=== PATIENT | female | born 1955 | race Caucasian/White ===

== ENCOUNTER 2024-03-11 18:07 | Emergency (ER) | payer OTHER, SELFPAY ==
[2024-03-11 18:19] VITALS: BP 157/87
[2024-03-11 19:29] VITALS: BP 146/79
[2024-03-11 19:43] LABS: % Basophils 0.6 % (0-2); % Eosinophils 2.2 % (0-6); % Immature Granulocytes 0.4 % (0-0.5); % Lymphocytes 26.9 % (20.5-51.1); % Monocytes 7.6 % (1.7-9.3); % Neutrophils 62.3 % (42.2-75.2); Absolute Eosinophils 0.2 10^3/uL (0-0.7); Absolute Lymphocytes 1.8 10^3/uL (1.2-3.4); Absolute Monocytes 0.5 10^3/uL (0.1-0.6); Absolute Neutrophils 4.2 10^3/uL (1.4-6.5); Hematocrit 35.7 % (37.0-47.0); Hemoglobin 12.3 g/dL (12.0-16.0); Mean Corp Hgb Conc. 34.5 g/dL (33.0-37.0); Mean Corpuscular Hgb 26.2 pg (27.0-31.0); Mean Corpuscular Volume 76.1 fL (81.0-99.0); Mean Platelet Volume 10.9 fL (7.4-10.4); Nucleated Red Blood Cells % 0 %; Platelet Count 227 10^3/uL (130-400); Red Blood Cell Count 4.69 10^6/uL (4.20-5.40); Red Cell Dist. Width 13.5 % (11.5-14.5); White Blood Cell Count 6.7 10^3/uL (4.8-10.8)
[2024-03-11 20:00] VITALS: BP 143/81
--- NOTE | 2024-03-11 20:32 | ED.GENMED ---
History of Present Illness
General
Chief Complaint: Heart Rate Problem
Source: patient and spouse
Exam Limitations: none
Time Seen by Provider: 03/11/24 19:47
History of Present Illness
History of Present Illness:
This is a 68 year old female that comes in with c/o chest pain. States that she has a heaviness in the left chest and then causes her to cough. states that this started on the in the morning that she was awakened with pain. States that
her heart rate is irregular when this happens. States that this happened on Thursday but it went away. Then again the next day and has been going on for the past 5 days. States tht she gets this 5-6 times daily. Denies any pain at this time.
States that she does have a headache. Denies any fever, chills, SOB, abd pain, nausea, vomiting, diarrhea, dizziness, urinary burning.
Past History
Past History
ED Past Medical History: HTN, Hypercholesterolemia, Hypothyroidism and Other (Gastritis)
ED Past Surgical History: None
Social History
Tobacco: Non-smoker
Alcohol: None
Personal:
Living: with family
Employment: Not employed
Family History
Family History: Other (Noncontributory)
Review of Systems
Review of Systems
All Other Systems: ROS reviewed and negative except as documented in HPI and ROS
Constitutional: Reports no symptoms; Denies fever or chills
EENT: Reports no symptoms
Respiratory: Reports cough (with the irregular heart beat); Denies trouble breathing
Cardiac: Reports chest pain
ABD/GI: Reports no symptoms; Denies abdominal pain, nausea, vomiting or diarrhea
: Reports no symptoms; Denies dysuria, frequency or urgency
Musculoskeletal: Reports no symptoms
Skin: Reports no symptoms
Neurological: Reports headache; Denies dizzy
Psychiatric: Reports no symptoms
Phy Exam
General Physical Exam
General Presentation: no apparent distress
General age: appears stated age
General Skin: warm and dry
General Habitus: normal
General Mental: alert
General Hydration: dry mucous membranes
ENT Exam
ENT Exam: TM's normal, pharynx normal and neck supple
Eye Exam
Eye Exam: EOMI
Cardiovascular Exam
Cardiovascular Exam: regular rate/rhythm, no edema, no murmur and normal peripheral pulses
Pulmonary Exam
Pulmonary Exam: lungs clear, no respiratory distress, no rales, chest non tender, no crackles, no rhonchi, no wheezing and no cough
Gastrointestinal Exam
Gastrointestinal Exam: normal bowel sounds, non tender, soft, no organomegaly, no pulsatile mass and non distended
Musculoskeletal Exam
Musculoskeletal Exam: full ROM and no edema
Skin Exam
Skin Exam: normal color, warm/dry, no rash and no petechia
Psychiatric Exam
Psychiatric Exam: normal mood/affect
Course
Orders/Labs/Results
Orders:
Orders
03/11/24 18:21
ECG [Electrocardiogram (*1)] Urgent
Reason for Study: Chest Pain
EKG- Treatment ONCE
03/11/24 19:32
Cardiac Monitoring- Treatment ONCE
IV Insert/Care/Rem.- Treatment PRN
CR Chest - 2 Views Urgent
Comment:
Reason For Exam: respiratory distress
O2 Therapy [RESP] Urgent
Titrate/Wean O2 to maintain O2 sat greater than (%): 93
Special Instructions: TO MAINTAIN CONTINUOUS O2 SATS >/= 93%
Pulse Ox/cont/shift [RESP] Urgent
Quantity: 1
Special Instructions: continuous pulse ox
03/11/24 19:34
Complete Blood Count/With Diff Urgent
03/11/24 20:32
0.9% Sodium Chloride 1000 ml [Nss] 1,000 ml IV BOLUS
03/11/24 20:37
Add On- LAB Urgent
Tests Added?: TSH with free T4
03/11/24 20:40
Comprehensive Metabolic Panel Urgent
D-Dimer Urgent
NT-proBNP Urgent
TSH Reflex To Free T4 Urgent
Comment: ADD ON
Troponin I Urgent
03/11/24 21:50
EKG- Treatment ONCE
03/11/24 22:23
Troponin I Urgent
03/11/24 23:40
Electrocardiogram (*1) Urgent
Reason for Study: Chest Pain
Other Reason for Exam: Repeat with troponin
Abnormal Lab Results
03/11/24 03/11/24
19:34 20:40
Hct 35.7 L %
(37.0-47.0)
MCV 76.1 L fL
(81.0-99.0)
MCH 26.2 L pg
(27.0-31.0)
MPV 10.9 H fL
(7.4-10.4)
BUN 24 H mg/dl
(7-17)
03/11/24 19:34
03/11/24 20:40
Anemia, Dehydration. D-dimer 0.28, Troponin <0.012, Pro-BNP <20.0, TSH 0.97
Second Troponin <0.012
Vital Signs
Initial and Last Documented VS:
Initial Vital Signs
Temp Pulse Resp BP Pulse Ox
98.6 F 73 20 157/87 98
03/11/24 18:19 03/11/24 18:19 03/11/24 18:19 03/11/24 18:19 03/11/24 18:19
Last Documented Vital Signs
Temp Pulse Resp BP Pulse Ox
98.6 F 73 20 157/87 98
03/11/24 18:19 03/11/24 18:19 03/11/24 18:19 03/11/24 18:19 03/11/24 18:19
MDM/Problems Addressed
Differential Diagnosis Includes:
Irregular heart rhythm, Coronary syndrome
MDM/Problems Addressed:
This is a 68 year old female that comes in with c/o chest pain that comes and goes. States that her heart rate is irregular when this happens and she has to cough.
Will check labs, chest x-ray, and give IV fluids
repeat ECG+ Rate 57m Sinus [place]. Normal axis. Normal QRS, negative for ischemia. Low voltage.
Back into see patient. Explained to patient and . Patient has not had any irregular heart rate here. The fact that when she gets her chest pain her heart is irregular is concerned. Will place patient on the Cardiology hot line for further
evaluation as they may have patient wear a Holter monitor and further testing. Patient to return with increased chest pain or any other concerns.
Chronic conditions affecting care:
NA
Acute Exacerbation and/or Progression of Chronic Illness:
NA
*Radiology
Radiology exam reviewed: radiology read reviewed (Chest-No acute cardiopulmonary process)
*Pulse Oximetry
Patient hypoxic: no
*EKG
Interpreted by ED Provider?: Yes
Heart Rate: 80
Rate: normal
Rhythm: sinus
[place]: normal axis
Interval: normal interval
QRS Pattern: normal QRS
Ischemia: no ischemia
*Preparation Supervisor [place] Interpretation
Rate: normal
Heart Rate: 61
Rhythm: sinus
*Critical Care Note
Total Time (30-74mins, 75-104mins- exclusive of procedures): Not Applicable
ED Attending Note
-
Portions of this chart may have been created with voice recognition software.� Occasional wrong word or��sound alike� substitutions may have occurred due to the inherent limitations of voice recognition software.
Discharge Plan
Departure
Patient Disposition: Home (Routine Discharge)
Date of Disposition: 03/11/24
Time of Disposition: 23:17
Patient with high blood pressure during this ER visit?: Yes
Condition: Good
Covid-19: Not Applicable
Discharge Problem:
Chest pain
Instructions: Chest Pain CBC Follow Up, BLOOD PRESSURE
Prescriptions:
No Action
Levothyroxine
125 mcg PO DAILY
cyanocobalamin (vitamin B-12) 1,000 MCG tablet
1,000 mcg PO DAILY
lisinopril 5 MG tablet
5 mg PO DAILY
ibuprofen 600 MG tablet
600 mg PO Q8H PRN (Reason: pain)
cholecalciferol (vitamin D3) [Vitamin D3] 25 MCG capsule
1,000 unit PO DAILY
rosuvastatin 5 MG tablet
5 mg PO HS
naproxen 500 mg tablet,delayed release (DR/EC)
500 mg PO BID Qty: 20 0RF
Rx Instructions:
Please take with food
Referrals:
NONE,* [Family Provider] -
Activity Restrictions/Additional Instructions:
As discussed, your blood work shows dehydration. Please increase your water intake to 8-8oz glasses daily. Your Chest x-ray is normal. Your Thyroid function is in a normal range but on the low side. Please follow up with your [employer] Faculty Member. You
have been place on the Cardiology hot line. This means that the Care Clinician office will call you the next business day for further evaluation. IF YOU HAVE INCREASED OR CHANGING CHEST PAIN, IRREGULAR HEART RATE OR YOU HAVE ANY OTHER CONCERNS PLEASE
RETURN TO THE EMERGENCY ROOM.
Interventions
Interventions:
*Risk Screen - Suicide Last Done: 03/11/24 18:19
*General Assessment Last Done: 03/11/24 18:19
*Neglect/Abuse Screening Last Done: 03/11/24 18:19
Discharge Date and Time
Print Language: BULGARIAN
[2024-03-11 21:00] VITALS: BP 128/76; BMI 26.3
[2024-03-11 21:02] LABS: D-Dimer 0.28 ug/mlFEU (0.00-0.50)
[2024-03-11 21:03] LABS: Alkaline Phosphatase 73 U/L (38-126); Blood Urea Nitrogen 24 mg/dl (7-17); Calcium 9.2 mg/dl (8.4-10.2); Carbon Dioxide 27 mmol/L (22-30); Chloride 101 mmol/L (98-107); Glucose 96 mg/dl (70-99); Potassium 3.6 mmol/L (3.5-5.1); Sodium 136 mmol/L (135-145); Total Protein 7.2 g/dl (6.3-8.2); eGFR > 60.00
[2024-03-11 21:04] LABS: ALT (SGPT) 22 U/L (0-35); AST (SGOT) 28 U/L (14-36); Albumin 4.2 g/dl (3.5-5.0); Total Bilirubin 0.4 mg/dl (0.2-1.3)
[2024-03-11 21:13] LABS: NT-proBNP < 20.0 pg/ml; Troponin I < 0.012 ng/ml
[2024-03-11] MEDS: NSS 1000 IV (21:18)
[2024-03-11 21:34] LABS: TSH Reflex To Free T4 0.97 uIU/ml (0.47-4.68)
[2024-03-11 22:00] VITALS: BP 137/82
[2024-03-11 22:13] VITALS: BP 141/75
[2024-03-11 22:59] LABS: Troponin I < 0.012 ng/ml
== END 2024-03-11 23:56 | disposition home or self-care (01) ==
LOC: EMR 18:07
PROVIDERS: Clinical Nurse Specialist Family Health; EMERGENCY PHYSICIAN Emergency Medicine
DX: R07.89 Other chest pain (principal); I10 Essential (primary) hypertension
CPT/HCPCS: 99285; 71046; 80053; 83880; 84443; 84484; 85025; 85379; 93005

== ENCOUNTER 2024-06-05 13:12 | Emergency (ER) | payer OTHER, SELFPAY ==
[2024-06-05 13:14] VITALS: BP 136/74
--- NOTE | 2024-06-05 14:37 | ED.GENMED ---
History of Present Illness
General
Chief Complaint: Head Injury
Source: patient
Time Seen by Provider: 06/05/24 14:29
History of Present Illness
History of Present Illness:
68-year-old female presenting to the emergency department for evaluation after she accidentally tripped and fell on a stone patio at her home yesterday evening resulting in a nasal contusion/abrasion. Since that time patient has had an off-and-on
headache, brain fog, difficulty concentrating and tinnitus. Patient denies any loss of consciousness, vomiting, vision changes. Denies any previous history of head injury. Denies use of anticoagulants. No other concerns presently
Past History
Past History
ED Past Medical History: HTN, Hypercholesterolemia, Hypothyroidism and Other (Gastritis)
ED Past Surgical History: None
Social History
Tobacco: Non-smoker
Alcohol: None
Drug: None
Personal:
Living: with family
Employment: Not employed
Family History
Family History: Other (Noncontributory)
Review of Systems
Review of Systems
All Other Systems: ROS reviewed and negative except as documented in HPI and ROS
Phy Exam
Physical Exam
Physical Exam:
GENERAL: Alert , in no apparent distress
HEAD: abrasion over nasal bridge but no septal deviation
EYE: conjunctiva clear, pupils 3mm b/l, EOMI
NECK: Supple, no midline ttp
ENT: o/p clr, mmm.
CARDIAC: Regular rate and rhythm
LUNGS: Clear breath sounds bilaterally, no acute respiratory distress, no wheezes/rales/rhonchi
NEUROLOGICAL: Alert and oriented
SKIN: Warm and dry, abrasion over right anterior patella
MUSCULOSKELETAL: well perfused.
PSYCH: Normal and appropriate interaction.
Scores
Heart Failure Risk
Heart Failure Risk Score: Not Applicable
Heart Score for Chest Pain Patients
STEMI patient?: Not applicable
Withdrawal Assessment of Alcohol
Withdrawal Assessment Completed?: Not applicable
Course
Orders/Labs/Results
Orders:
Orders
06/05/24 15:17
CT Head W/o Iv Contrast Urgent
Comment:
Reason For Exam: head injury
Vital Signs
Initial and Last Documented VS:
Initial Vital Signs
Temp Pulse Resp BP Pulse Ox
98.2 F 70 16 136/74 100
06/05/24 13:14 06/05/24 13:14 06/05/24 13:14 06/05/24 13:14 06/05/24 13:14
Last Documented Vital Signs
Temp Pulse Resp BP Pulse Ox
98.2 F 72 16 141/84 97
06/05/24 13:14 06/05/24 16:55 06/05/24 16:55 06/05/24 16:55 06/05/24 16:55
MDM/Problems Addressed
Differential Diagnosis Includes:
concussion, contusion, abrasion, less concern for ICH
MDM/Problems Addressed:
68-year-old female presenting to the emergency department for evaluation of head injury following an accidental trip and fall yesterday. Based off presentation I suspect concussion is the most likely diagnosis but given her age and headache
decision was made to obtain CT scan of the head to rule out intracranial bleeding. Patient in agreement with this plan. Concussion management and symptoms discussed. I do anticipate discharge home pending CT results.
*Radiology
Radiology exam reviewed: radiology read reviewed
*Pulse Oximetry
Patient hypoxic: no
*Critical Care Note
Total Time (30-74mins, 75-104mins- exclusive of procedures): Not Applicable
Patient Management
Escalation/DeEscalation of care consider admission/obs:
CT head without any acute pathologies. Patient stable for d/c home
ED Attending Note
-
Portions of this chart may have been created with voice recognition software.� Occasional wrong word or��sound alike� substitutions may have occurred due to the inherent limitations of voice recognition software.
Discharge Plan
Departure
Patient Disposition: Home (Routine Discharge)
Date of Disposition: 06/05/24
Time of Disposition: 16:53
Patient with high blood pressure during this ER visit?: No
Discharge Problem:
Head injury
Instructions: Concussion, Adult (DC)
Prescriptions:
No Action
Levothyroxine
125 mcg PO DAILY
cyanocobalamin (vitamin B-12) 1,000 MCG tablet
1,000 mcg PO DAILY
lisinopril 5 MG tablet
5 mg PO DAILY
ibuprofen 600 MG tablet
600 mg PO Q8H PRN (Reason: pain)
cholecalciferol (vitamin D3) [Vitamin D3] 25 MCG capsule
1,000 unit PO DAILY
rosuvastatin 5 MG tablet
5 mg PO HS
naproxen 500 mg tablet,delayed release (DR/EC)
500 mg PO BID Qty: 20 0RF
Rx Instructions:
Please take with food
Referrals:
UNKNOWN - PT DOES,NOT KNOW [Family Provider] -
Interventions
Interventions:
*Risk Screen - Suicide Last Done: 06/05/24 13:14
*General Assessment Last Done: 06/05/24 13:14
*Neglect/Abuse Screening Last Done: 06/05/24 13:14
ED- Fall Risk Assessment Last Done: 06/05/24 16:56
*ED COVID-19 Vaccine History Last Done: 06/05/24 14:53
*Nursing Disposition Last Done: 06/05/24 17:08
ED- Neurological Assessment Last Done: 06/05/24 14:53
ED-Skin Assessment Last Done: 06/05/24 14:53
Discharge Date and Time
Discharge Date/Time: 06/05/24 17:10
Print Language: MAORI
[2024-06-05 15:16] VITALS: BP 131/74
[2024-06-05 16:55] VITALS: BP 141/84
== END 2024-06-05 17:10 | disposition home or self-care (01) ==
LOC: EMR 13:12
PROVIDERS: EMERGENCY PHYSICIAN Emergency Medicine
DX: S09.90XA Unspecified injury of head, initial encounter (principal); W01.0XXA Fall on same level from slipping, tripping and stumbling without subsequent striking against object, initial encounter; I10 Essential (primary) hypertension; E78.00 Pure hypercholesterolemia, unspecified; E03.9 Hypothyroidism, unspecified; Z87.19 Personal history of other diseases of the digestive system
CPT/HCPCS: 99284; 70450

== ENCOUNTER 2025-03-01 15:17 | Emergency (ER) | payer OTHER, SELFPAY ==
[2025-03-01 15:19] VITALS: BP 147/84
[2025-03-01 15:45] LABS: % Basophils 0.4 % (0-2); % Eosinophils 0.3 % (0-6); % Immature Granulocytes 0.3 % (0-0.5); % Lymphocytes 14.7 % (20.5-51.1); % Monocytes 4.8 % (1.7-9.3); % Neutrophils 79.5 % (42.2-75.2); Absolute Lymphocytes 1.1 10^3/uL (1.2-3.4); Absolute Monocytes 0.4 10^3/uL (0.1-0.6); Absolute Neutrophils 5.8 10^3/uL (1.4-6.5); Hematocrit 40.6 % (37.0-47.0); Hemoglobin 13.9 g/dL (12.0-16.0); Mean Corp Hgb Conc. 34.2 g/dL (33.0-37.0); Mean Platelet Volume 11.2 fL (7.4-10.4); Nucleated Red Blood Cells % 0 %; Platelet Count 217 10^3/uL (130-400); Red Blood Cell Count 5.34 10^6/uL (4.20-5.40); Red Cell Dist. Width 13.5 % (11.5-14.5); White Blood Cell Count 7.3 10^3/uL (4.8-10.8)
[2025-03-01 16:13] LABS: ALT (SGPT) 34 U/L (0-35); AST (SGOT) 28 U/L (14-36); Albumin 4.8 g/dl (3.5-5.0); Alkaline Phosphatase 107 U/L (38-126); Blood Urea Nitrogen 23 mg/dl (7-17); Calcium 9.5 mg/dl (8.4-10.2); Carbon Dioxide 21 mmol/L (22-30); Chloride 98 mmol/L (98-107); Glucose 638 mg/dl (70-99); Sodium 130 mmol/L (135-145); Total Bilirubin 0.8 mg/dl (0.2-1.3); Total Protein 7.4 g/dl (6.3-8.2); eGFR > 60.00
[2025-03-01 16:45] VITALS: BMI 24.3
[2025-03-01] MEDS: NSS 1000 IV ×2 (17:01→18:32)
[2025-03-01] MEDS: NOVOLIN R 10 UNITS SC (17:01)
--- NOTE | 2025-03-01 17:02 | ED.GENMED ---
History of Present Illness
General
Chief Complaint: Weakness
Source: patient
Exam Limitations: none
Time Seen by Provider: 03/01/25 16:23
Nursing documentation reviewed up to this point in time: agreed with
History of Present Illness
History of Present Illness:
The patient is a 69-year-old female presenting with significant weakness, imbalance, and difficulty concentrating. She reports episodes of feeling 'off' and occasionally losing her sense of direction. These symptoms have been ongoing for a few
weeks. The patients blood glucose level was noted to be extremely high at 600 mg/dL, suggesting hyperglycemia, possibly due to undiagnosed diabetes mellitus. The patient denies any recent illnesses or infections. She reports frequent urination,
which she states is typical for her. There is an absence of chest pain, headaches, or shortness of breath.
The patient�s brother has a history of diabetes, and the patient likely has undiagnosed diabetes mellitus, as indicated by her current hyperglycemic state.
Past History
Past History
ED Past Medical History: HTN, Hypercholesterolemia, Hypothyroidism and Other (Gastritis)
ED Past Surgical History: None
Social History
Tobacco: Non-smoker
Alcohol: None
Drug: None
Personal:
Living: with family
Employment: Not employed
Family History
Family History: Other (Noncontributory)
Review of Systems
Review of Systems
Allergies reviewed?: Yes
All Other Systems: ROS reviewed and negative except as documented in HPI and ROS
Phy Exam
Physical Exam
Physical Exam:
GENERAL: Alert , in no apparent distress
EYE: pupils equal and reactive
NECK: Supple, no significant adenopathy.
ENT: o/p clr, mmm.
CARDIAC: Regular rate and rhythm .
LUNGS: Clear breath sounds bilaterally, no acute respiratory distress, no wheezes/rales/rhonchi
ABDOMEN: Soft, without focal tenderness, no r/g, no cvat
NEUROLOGICAL: Alert and oriented, no focal neuro deficits
SKIN: Warm and dry, skin intact.
MUSCULOSKELETAL: No edema, well perfused.
PSYCH: Normal and appropriate interaction.
Course
Orders/Labs/Results
Orders:
Orders
03/01/25 15:25
Electrocardiogram (*1) Stat
Reason for Study: Vertigo / Dizzy
EKG- Treatment ONCE
03/01/25 15:35
B-Hydroxybutyrate Urgent
Comment: ADD O
CMP [Comprehensive Metabolic Panel] Urgent
Complete Blood Count/With Diff Urgent
TSH Reflex To Free T4 Urgent
Comment: ADD ON
03/01/25 16:48
CT Head W/o Iv Contrast Urgent
Comment:
Reason For Exam: off balance
0.9% Sodium Chloride 1000 ml [Nss] 1,000 ml IV BOLUS
Insulin Human Regular [Novolin R] 10 units SC NOW STA
03/01/25 16:49
Add On- LAB Urgent
Tests Added?: beta hydroxybutyrate, tsh free t4
03/01/25 16:56
Urinalysis Reflex To Culture Urgent
Date Specimen was Collected: 03/01/25
Time Specimen was Collected: 16:54
03/01/25 17:56
Venous Blood Gas Urgent
%Oxygen/Room Air: 99
03/01/25 18:03
Glucose Stat
03/01/25 18:25
0.9% Sodium Chloride 1000 ml [Nss] 1,000 ml IV BOLUS
METFORMIN HCl [Glucophage] 500 mg PO NOW STA
03/01/25 19:27
Bedside Glucose- Treatment ONCE
Abnormal Lab Results
03/01/25 03/01/25 03/01/25
15:35 16:56 17:56
MCV 76.0 L fL
(81.0-99.0)
MCH 26.0 L pg
(27.0-31.0)
MPV 11.2 H fL
(7.4-10.4)
Absolute Lymphs (auto) 1.1 L 10^3/uL
(1.2-3.4)
Neutrophils % 79.5 H %
(42.2-75.2)
Lymphocytes % 14.7 L %
(20.5-51.1)
VBG pO2 64 H mmHg
(30-50)
Sodium 130 L mmol/L
(135-145)
Carbon Dioxide 21 L mmol/L
(22-30)
BUN 23 H mg/dl
(7-17)
Glucose 638 H* mg/dl
(70-99)
Urine Ketones 3+ A
(Negative)
Urine Glucose 4+ A
(Negative)
B-Hydroxybutyrate 2.11 H mmol/L
(0.02-0.27)
POC Glucose
03/01/25 03/01/25 03/01/25
17:58 18:03 19:54
MCV
MCH
MPV
Absolute Lymphs (auto)
Neutrophils %
Lymphocytes %
VBG pO2
Sodium
Carbon Dioxide
BUN
Glucose 383 H mg/dl
(70-99)
Urine Ketones
Urine Glucose
B-Hydroxybutyrate
POC Glucose 404 H mg/dl 313 H mg/dl
(70-99) (70-99)
03/01/25 15:35
03/01/25 18:03
Vital Signs
Initial and Last Documented VS:
Initial Vital Signs
Temp Pulse Resp BP Pulse Ox
98.9 F 98 18 147/84 96
03/01/25 15:19 03/01/25 15:19 03/01/25 15:19 03/01/25 15:19 03/01/25 15:19
Last Documented Vital Signs
Temp Pulse Resp BP Pulse Ox
98.9 F 74 16 145/75 99
03/01/25 15:19 03/01/25 17:54 03/01/25 17:54 03/01/25 17:54 03/01/25 17:54
MDM/Problems Addressed
MDM/Problems Addressed:
Acute:
- Hyperglycemia likely secondary to undiagnosed diabetes
- Weakness and imbalance
- Initiate intravenous (IV) fluids and administer insulin to reduce blood glucose levels.
- Obtain a head computed tomography (CT) scan to exclude neurological causes such as stroke, although this is considered unlikely.
- Encourage the patient to provide her previous medical records for additional context, as electronic medical records are not synchronized with the current system.
The Differential Diagnosis includes, in no particular order and is not limited to:
1. Undiagnosed diabetes mellitus with hyperglycemia.
2. Stroke/TIA (Transient Ischemic Attack).
3. Electrolyte imbalance.
4. Neuropathy.
5. Infections causing metabolic alterations.
6. Medication-induced hyperglycemia.
7. Adrenal insufficiency.
8. Hyperthyroidism.
9. Psychiatric disorders causing acute changes in mental status.
10. Dehydration.
*Critical Care Note
Total Time (30-74mins, 75-104mins- exclusive of procedures): Not Applicable
Update Note
Update Note:
03/01/25 - 19:11
Patient presented with significantly elevated blood sugar levels, approximately in the 600s, likely exacerbated by concurrent use of Budesonide, a steroid known to elevate glucose levels. Discussion confirmed it is not diabetic ketoacidosis.
Emphasis was placed on discontinuing Budesonide as soon as feasible, ideally within one week. Immediate treatment includes initiation of Metformin at 500 mg twice daily. Dietary modifications were advised, prioritizing reduced carbohydrate intake,
primarily eliminating sugars, breads, and rice, and emphasizing protein and healthy fats until stabilization. Follow-up with family physicians and potential endocrinology consultation were recommended to ensure ongoing management and adjustments as
necessary. The underlying GI condition previously managed with Budesonide, diagnosed as autoimmune gastritis or colitis, will require further assessment in collaboration with the patients specialists.
Otherwise patient's sugar level improving here to 300 even. Patient no distress stable for outpatient management return precautions given. Patient does claim she is likely able to get follow-up tomorrow with her primary care doctor and close
follow-up with endocrinology. Case was discussed with endocrine.
ED Attending Note
-
Portions of this chart may have been created with voice recognition software.� Occasional wrong word or��sound alike� substitutions may have occurred due to the inherent limitations of voice recognition software.
Discharge Plan
Departure
Patient Disposition: Home (Routine Discharge)
Date of Disposition: 03/01/25
Time of Disposition: 20:47
Patient with high blood pressure during this ER visit?: No
Condition: Good
Covid-19: Not Applicable
Discharge Problem:
Diabetes, Acute hyperglycemia
Instructions: Type 2 diabetes - Discharge instructions, High blood sugar in adults - ED discharge instructions
Prescriptions:
New
metformin 500 mg tablet
500 mg PO BIDWMEAL 14 Days Qty: 28 0RF
(DME) blood-glucose meter Kit
See Rx Instructions .ROUTE Qty: 1 0RF
Rx Instructions:
As directed
(DME) lancets Misc
See Rx Instructions .ROUTE Qty: 100 0RF
Rx Instructions:
As directed
(DME) Accu-Chek Sneha Plus test strp Strip
See Rx Instructions .ROUTE Qty: 50 0RF
Rx Instructions:
As directed
No Action
levothyroxine [Synthroid] 125 mcg Tablet
125 mcg PO DAILY
cyanocobalamin (vitamin B-12) 1,000 MCG tablet
1,000 mcg PO DAILY
cholecalciferol (vitamin D3) [Vitamin D3] 25 MCG capsule
1,000 unit PO DAILY
rosuvastatin 5 MG tablet
5 mg PO HS
amiloride-hydrochlorothiazide 5-50 mg tablet
0.5 tab PO DAILY
amlodipine [Norvasc] 5 mg Tablet
5 mg PO QPM
ferrous sulfate 325 mg (65 mg iron) Tablet
325 mg PO DAILY
budesonide 3 mg Capsule,Delayed,Extend.Release
6 mg PO DAILY
magnesium oxide 400 mg magnesium Tablet
400 mg PO DAILY
Referrals:
Andreina Carr MD [Consulting Staff, Endocrinology]
PRIVATE,PHYSICIAN [Family Provider, Internal Medicine]
Activity Restrictions/Additional Instructions:
You were found to have an elevated glucose level here. This is concerning for diabetes. Please take the prescribed medications and follow-up very closely as an outpatient. Return for any worsening, new or concerning symptoms.
Interventions
Interventions:
*Risk Screen - Suicide Last Done: 03/01/25 15:23
*Neglect/Abuse Screening Last Done: 03/01/25 15:23
ED- Pulmonary Assessment Last Done: 03/01/25 16:50
ED- Neurological Assessment Last Done: 03/01/25 16:50
ED- Cardiac Assessment Last Done: 03/01/25 16:50
Discharge Date and Time
Print Language: FRENCH
[2025-03-01 17:04] LABS: Urine Albumin Negative (Neg - Trace); Urine Bilirubin Negative (Negative); Urine Character Clear (Clear); Urine Glucose 4+ (Negative); Urine Ketone 3+ (Negative); Urine Leukocyte Negative (Negative); Urine Nitrite Negative (Negative); Urine Occult Blood Negative (Negative); Urine Urobilinogen Negative (Neg - 1+)
[2025-03-01 17:14] LABS: Urine Color Straw
[2025-03-01 17:38] LABS: B-Hydroxybutyrate 2.11 mmol/L (0.02-0.27)
[2025-03-01 17:54] VITALS: BP 145/75
[2025-03-01 17:59] LABS: Glucose - Point of Care 404 mg/dl (70-99)
[2025-03-01 18:00] LABS: TSH Reflex To Free T4 1.01 uIU/ml (0.47-4.68)
[2025-03-01 18:16] LABS: Venous Blood Gas B.E. 0.8 mmol/L (-4 to +4); Venous Blood Gas HCO3 26.6 mmol/L (22-27); Venous Blood Gas O2 Sat % 93.6 %; Venous Blood Gas pCO2 46 mmHg (35-48); Venous Blood Gas pH 7.37 (7.32-7.43); Venous Blood Gas pO2 64 mmHg (30-50)
[2025-03-01 18:23] LABS: Glucose 383 mg/dl (70-99)
[2025-03-01] MEDS: GLUCOPHAGE 500 MG PO (18:32)
[2025-03-01 19:55] LABS: Glucose - Point of Care 313 mg/dl (70-99)
== END 2025-03-01 21:10 | disposition home or self-care (01) ==
LOC: EMR 15:17
PROVIDERS: Physician Assistant; EMERGENCY PHYSICIAN Emergency Medicine
DX: E11.65 Type 2 diabetes mellitus with hyperglycemia (principal); E03.9 Hypothyroidism, unspecified; I10 Essential (primary) hypertension
CPT/HCPCS: 96372; 96360; 96361; 99284; 70450; 80053; 81003; 82010; 82805; 82947; 82962; 84443; 85025; 93005

== ENCOUNTER 2025-03-03 11:00 | Emergency (ER) | payer OTHER, SELFPAY ==
[2025-03-03 11:01] VITALS: BP 178/90
[2025-03-03 11:09] LABS: Glucose - Point of Care 383 mg/dl (70-99)
--- NOTE | 2025-03-03 12:14 | ED.GENMED ---
History of Present Illness
General
Chief Complaint: Blood Sugar Problem
Source: patient and family (son)
Exam Limitations: none
Time Seen by Provider: 03/03/25 11:46
Nursing documentation reviewed up to this point in time: agreed with
History of Present Illness
History of Present Illness:
69 yo female w h/o HTN, Hypercholesterolemia, Hypothyroidism and Autoimmune atropic gastritis and Lymphocytic colitis, started Budesonide 12/22/24 (3 tabs x 8 wks, then 2 tabs for 14 days, then 1 tab for 14 days. She just started the last 14 days of 1
tab). She is here for high blood sugar, same symptoms as when she was here on 03/01/25: weakness, imbalance, and difficulty concentrating. She reports episodes of feeling 'off'.
She was here last week for same, given Insulin 10 U Regular SQ and started on Metformin for probable undiagnosed DM as well as hyperglycemia r/t being on Budesonide. Referred back to PCP.
Pt GI and PCP are at [facility].
PCP sent pt here today for evaluation, pt and say they were told by PCP she should have been admitted last week to get her sugar under control
Fingerstick BS 383 now
Past History
Past History
ED Past Medical History: HTN, Hypercholesterolemia, Hypothyroidism and Other (Gastritis)
ED Past Surgical History: None
Social History
Tobacco: Non-smoker
Alcohol: None
Drug: None
Personal:
Living: with family
Employment: Not employed
Family History
Family History: Other (Noncontributory)
Review of Systems
Review of Systems
Allergies reviewed?: Yes
All Other Systems: ROS reviewed and negative except as documented in HPI and ROS
Constitutional: Denies fever or fatigue
Respiratory: Denies trouble breathing
Cardiac: Denies chest pain
ABD/GI: Denies abdominal pain, nausea, vomiting or diarrhea
: Reports frequency
Skin: Reports no symptoms
Neurological: Reports dizzy; Denies headache, weakness or numbness
Endocrine: Reports polyuria and polydipsia
Phy Exam
Physical Exam
Physical Exam:
GENERAL: No acute distress. A&Ox3.
CONSTITUTIONAL: Afebrile.
EYES: clear, conjunctivae normal
ENMT: moist mucus membranes, Pharynx nl
RESPIRATORY: Regular respirations, nonlabored, lungs clear.
CARDIOVASCULAR: Regular rate and rhythm, no murmurs, no rubs.
GI: Soft, nontender, normal BS
MUSCULOSKELETAL: Moves with ease. Well perfused.
SKIN: Warm, dry, pink
PSYCH: Normal mood and affect. Well kept, interactive and appropriate
NEUROLOGIC: Awake, alert and oriented. No focal neurological deficits
Course
Orders/Labs/Results
Orders:
Orders
03/03/25 12:55
0.9% Sodium Chloride 1000 ml [Nss] 1,000 ml IV BOLUS
03/03/25 13:05
Complete Blood Count/With Diff Urgent
Comprehensive Metabolic Panel Urgent
Hemoglobin A1c [Glycohemoglobin (HgbA1c)] Urgent
Abnormal Lab Results
03/03/25 03/03/25 03/03/25
11:04 13:05 13:51
MCV 76.1 L fL
(81.0-99.0)
MCH 26.0 L pg
(27.0-31.0)
MPV 11.7 H fL
(7.4-10.4)
Absolute Lymphs (auto) 1.1 L 10^3/uL
(1.2-3.4)
Neutrophils % 76.8 H %
(42.2-75.2)
Lymphocytes % 16.6 L %
(20.5-51.1)
BUN 22 H mg/dl
(7-17)
Glucose 331 H mg/dl
(70-99)
POC Glucose 383 H mg/dl 276 H mg/dl
(70-99) (70-99)
03/03/25 13:05
03/03/25 13:05
Vital Signs
Initial and Last Documented VS:
Initial Vital Signs
Temp Pulse Resp BP Pulse Ox
98.0 F 76 16 178/90 98
03/03/25 11:01 03/03/25 11:01 03/03/25 11:01 03/03/25 11:01 03/03/25 11:01
Last Documented Vital Signs
Temp Pulse Resp BP Pulse Ox
98.0 F 65 18 142/75 98
03/03/25 11:01 03/03/25 13:21 03/03/25 14:18 03/03/25 14:18 03/03/25 14:18
MDM/Problems Addressed
Differential Diagnosis Includes:
steroid induced hyperglycemia, DM, DKA
MDM/Problems Addressed:
69 yo female w h/o HTN, Hypercholesterolemia, Hypothyroidism and Autoimmune atropic gastritis and Lymphocytic colitis, started Budesonide 12/22/24 (3 tabs x 8 wks, then 2 tabs for 14 days, then 1 tab for 14 days. She just started the last 14 days of 1
tab). She is here for high blood sugar, same symptoms as when she was here on 03/01/25: weakness, imbalance, and difficulty concentrating. She reports episodes of feeling 'off'.
She was here last week for same, given Insulin 10 U Regular SQ and started on Metformin for probable undiagnosed DM as well as hyperglycemia r/t being on Budesonide. Referred back to PCP.
Pt GI and PCP are at [facility].
PCP sent pt here today for evaluation, pt and say they were told by PCP she should have been admitted last week to get her sugar under control
Fingerstick BS 383 now
1:30 p.m.
CBC normal
CMP normal save for BUN 22 and Glucose 331
No DKA
After 1 L NSS Finger stick BS 276.
Spoke with helicopter pilot Dr. Carr, case discussed and she recommends adding glipizide 2.5 mg to the twice daily metformin 500 mg and checking blood sugar daily, drinking lots of fluids and low-carb diet for the next 14 days till she
finishes the budesonide. No need for insulin at this time
This was discussed with patient and , they requested that I speak with the PCP Dr. Quinonez which I did and PCP is on board with the treatment plan.
*Critical Care Note
Total Time (30-74mins, 75-104mins- exclusive of procedures): Not Applicable
ED Attending Note
-
Portions of this chart may have been created with voice recognition software.� Occasional wrong word or��sound alike� substitutions may have occurred due to the inherent limitations of voice recognition software.
Discharge Plan
Departure
Patient Disposition: Home (Routine Discharge)
Date of Disposition: 03/03/25
Time of Disposition: 16:00
Patient with high blood pressure during this ER visit?: No
Condition: Good
Discharge Problem:
Steroid-induced hyperglycemia
Instructions: High blood sugar in adults - ED discharge instructions
Prescriptions:
New
glipizide 2.5 mg tablet
2.5 mg PO DAILY Qty: 15 0RF
No Action
levothyroxine [Synthroid] 125 mcg Tablet
125 mcg PO DAILY
cyanocobalamin (vitamin B-12) 1,000 MCG tablet
1,000 mcg PO DAILY
cholecalciferol (vitamin D3) [Vitamin D3] 25 MCG capsule
1,000 unit PO DAILY
rosuvastatin 5 MG tablet
5 mg PO HS
amiloride-hydrochlorothiazide 5-50 mg tablet
0.5 tab PO DAILY
amlodipine [Norvasc] 5 mg Tablet
5 mg PO QPM
ferrous sulfate 325 mg (65 mg iron) Tablet
325 mg PO DAILY
budesonide 3 mg Capsule,Delayed,Extend.Release
6 mg PO DAILY
magnesium oxide 400 mg magnesium Tablet
400 mg PO DAILY
metformin 500 mg tablet
500 mg PO BIDWMEAL 14 Days Qty: 28 0RF
(DME) blood-glucose meter Kit
See Rx Instructions .Route Qty: 1 0RF
Rx Instructions:
As directed
(DME) lancets Misc
See Rx Instructions .Route Qty: 100 0RF
Rx Instructions:
As directed
(DME) Accu-Chek Sneha Plus test strp Strip
See Rx Instructions .Route Qty: 50 0RF
Rx Instructions:
As directed
Referrals:
Norris Srivastava MD [Family Provider, Internal Medicine]
Activity Restrictions/Additional Instructions:
As we discussed, I sent a prescription to your pharmacy for the glipizide 2.5 mg to take daily along with the metformin 500 mg twice a day
Do this daily for the next 15 days.
Check your blood sugar daily
Drink at least eight 8 ounce glasses of water daily for the next 2 weeks
Eat a low-carb diet for the next 14 days
Keep in contact with your primary doctor about your blood sugars. If they get higher he may want to add another dose of glipizide daily.
Interventions
Interventions:
*Risk Screen - Suicide Last Done: 03/03/25 11:01
*Neglect/Abuse Screening Last Done: 03/03/25 11:01
*Nursing Disposition Last Done: 03/03/25 16:11
ED- Neurological Assessment Last Done: 03/03/25 13:23
Discharge Date and Time
Discharge Date/Time: 03/03/25 16:12
Print Language: AZERI
[2025-03-03] MEDS: NSS 1000 IV (13:05)
[2025-03-03 13:15] LABS: % Basophils 0.4 % (0-2); % Eosinophils 0.4 % (0-6); % Immature Granulocytes 0.1 % (0-0.5); % Lymphocytes 16.6 % (20.5-51.1); % Monocytes 5.7 % (1.7-9.3); % Neutrophils 76.8 % (42.2-75.2); Absolute Lymphocytes 1.1 10^3/uL (1.2-3.4); Absolute Monocytes 0.4 10^3/uL (0.1-0.6); Absolute Neutrophils 5.3 10^3/uL (1.4-6.5); Hematocrit 37.8 % (37.0-47.0); Hemoglobin 12.9 g/dL (12.0-16.0); Mean Corp Hgb Conc. 34.1 g/dL (33.0-37.0); Mean Corpuscular Volume 76.1 fL (81.0-99.0); Mean Platelet Volume 11.7 fL (7.4-10.4); Nucleated Red Blood Cells % 0 %; Platelet Count 195 10^3/uL (130-400); Red Blood Cell Count 4.97 10^6/uL (4.20-5.40); Red Cell Dist. Width 13.6 % (11.5-14.5); White Blood Cell Count 6.9 10^3/uL (4.8-10.8)
[2025-03-03 13:21] VITALS: BP 132/76
[2025-03-03 13:25] LABS: ALT (SGPT) 27 U/L (0-35); AST (SGOT) 22 U/L (14-36); Albumin 4.3 g/dl (3.5-5.0); Alkaline Phosphatase 78 U/L (38-126); Blood Urea Nitrogen 22 mg/dl (7-17); Calcium 9.7 mg/dl (8.4-10.2); Carbon Dioxide 24 mmol/L (22-30); Chloride 103 mmol/L (98-107); Glucose 331 mg/dl (70-99); Potassium 4.6 mmol/L (3.5-5.1); Sodium 135 mmol/L (135-145); Total Bilirubin 0.4 mg/dl (0.2-1.3); Total Protein 6.8 g/dl (6.3-8.2); eGFR > 60.00
[2025-03-03 13:53] LABS: Glucose - Point of Care 276 mg/dl (70-99)
[2025-03-03 14:18] VITALS: BP 142/75
[2025-03-04 13:52] LABS: Glycohemoglobin (HgbA1c) 11.2 % (4.0-5.6)
== END 2025-03-03 16:12 | disposition home or self-care (01) ==
LOC: EMR 11:00
PROVIDERS: Registered Nurse; EMERGENCY PHYSICIAN Student in an Organized Health Care Education/Training Program; FAMILY PHYSICIAN Internal Medicine
DX: R73.9 Hyperglycemia, unspecified (principal); T38.0X5A Adverse effect of glucocorticoids and synthetic analogues, initial encounter; Y92.9 Unspecified place or not applicable; I10 Essential (primary) hypertension; E78.00 Pure hypercholesterolemia, unspecified; E03.9 Hypothyroidism, unspecified; Z87.19 Personal history of other diseases of the digestive system
CPT/HCPCS: 99283; 96360; 80053; 82962; 83036; 85025